=== PATIENT | male | born 1975 | race Caucasian/White ===

== ENCOUNTER → 2023-07-05 11:16 | Outpatient (CLI) | payer MEDICARE, MEDICAID, SELFPAY ==
[2023-07-05 13:22] LABS: Hemoglobin A1C% w Est Avg Glu 13.2 % (4.0-6.0)
== END ==
PROVIDERS: PCP Family Medicine; Referring Provider Family Medicine; Visit Provider Family Medicine
DX: E11.9 Type 2 diabetes mellitus without complications (principal)
CPT/HCPCS: 36415; 83036

== ENCOUNTER → 2023-08-13 10:34 | Outpatient (CLI) | payer MEDICARE, MEDICAID, SELFPAY ==
--- NOTE | 2023-08-15 17:27 | DIAB.MNT ---
Addendum entered by Fouzia Ruvalcaba 09/11/23 17:03: Tried calling for phone f/u. Contact number is mother, Khadra. 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 Asked her to have him call me with a day/time that works for us to schedule a phone call. Otherwise, October 16:1 scheduled. She did reports his BG have been <175mg/dl. Unclear if this is FBG or PP. Original Note: Initial Diabetes Medical Nutrition Therapy Assessment Name: Bruce Calderon Date: 08/13/23 Time: 1110a-12p Dx: Type II Diabetes Provider: Luna Schmidt presents today for initial DM education. PMH of schizophrenia DO and KATHI. Recently hospitalized s/p hernia surgery. Was diagnosed with DM with BG check presurgery of 400mg/dl per report and provided oral meds. Endorses takin glipizide 5mg and Metformin 500mg BID. HgA1c recent 13.2%. Given Hga1c and reported BG of 400mg/dl, anticipate needing additional medication coverage (full dose Metformin? Added DM agent?). Not currently checking BG but picked up supplies. 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 per report. Only grocery shops once per month. most of freezer is full of protein. Reports large protein portions in a sitting, ie 22oz. Limited veggie intake. Has switched from regular soda to diet x 2L per day. Hoping to move to [place]. Has been trying to keep meals to 15g CHO, very low, has been a challenge. wants mal planning ideas. Diet Recall: 12p: hard candy and/or 0.5c OJ with diet soda 4-5p: 6 eggs, 2 toast, breakfast meat OR 2c cooked oats with milk and sugar sub OR sweetened yogurt OR sf jello 12am: lasagna x 4c OR steak x 22oz OR hamburger OR tacos in low CHO wrap Beverages: 1L sparkling water, 2L diet soda Anthropometrics: Ht: 6'3.5 Wt: 252# last PCP visit 06/2023 Physical Activity: Not discussed today Self-Monitoring Blood Glucose: None but has supplies. Open to beginning checks. Diabetes Medications: Glipizide 5mg Metformin 500mg BID Pertinent Labs: 06/2023 13.2% HgA1c Past Medical History: (Last Updated 07/27/23 @ 20:26 by Antionette Matisa) Allergies (~1997) Anxiety (~2015) SSI Disability for anxiety Chronic cough (~2019) Hemorrhoid Hepatitis C (~2014) Hyperlipidemia (~2019) Hypertension (~2019) Mental health problem (~2020) [facility] confinement for 10 months Mumps (~1980) Schizophrenia, schizo-affective (~2020) Sleep apnea Substance abuse (~1999) Nutrition Rx: Carbohydrates: Meal:30-45g Snack:15-30g Nutrition Diagnosis: - Nutrition and food related knowledge deficit r/t new dx of DM and no previous MNT aeb pt report and hgA1c of 13.2% - Inadequate fiber intake r/t limited whole grains, veggies, fruit aeb diet recall Intervention: This participant was very receptive. Provided appropriate educational handouts. Discussed the following topics: Completed intake assessment. Discussed barriers to care. Importance of self-monitoring, how often, and when to check. Suggested checking at different times to evaluate meals Plate Method, impact of macronutrients on blood sugar, meal timing, carbohydrate counting, pairing macronutrients and spreading out carbohydrates for better blood glucose management Recommended servings for carbohydrates at meals and snacks Heart health and kidney health nutrition Brainstormed appropriate meal ideas/strategies on food preferences and food availability Encouraged frozen/canned low Na veg options Created SMART goals for patient self-care and success. Goals: Try to keep CHO to 30-45g per meal Check BG daily: FBG and/or 1-2h pc Increase veggie intake Follow-up: MARCIO WALKER follow-up in 1 week via messaging or phone and scheduled 3 month visit 1:1. Would recommend sooner f/u however this RD currently does not have virtual visit access. If Brayan moves to [place] or virtual visits are available, will schedule sooner f/u. Otherwise, messaging/phone check-ins. Fouzia Ruvalcaba RDN, DENISE Certified Diabetes Care and [employer] P: [phone] Thank you for this referral
== END ==
PROVIDERS: PCP Family Medicine; Referring Provider Family Medicine; Visit Provider Family Medicine
DX: E11.9 Type 2 diabetes mellitus without complications (principal)
CPT/HCPCS: 97802

== ENCOUNTER 2024-09-24 14:45 | Emergency (ER) | payer MEDICARE, MEDICAID, SELFPAY ==
[2024-09-24 15:08] VITALS: BP 168/92; PULSE 104; RESP 20; TEMP 36.6; O2SAT 99; BMI 26.7
--- NOTE | 2024-09-24 15:17 | DI.RAD.S_ITS ---
PROCEDURE: XR HIP W PEL IF DONE RT 2V INDICATIONS: hip pain TECHNIQUE: AP pelvis with lateral view(s) of the right hip(s). COMPARISON: None. FINDINGS: Bones: No fractures or dislocations. Mild bilateral hip joint osteoarthritic changes are seen. No evidence of avascular necrosis of femoral head. Pelvic ring appears intact. No suspicious bony lesions. Soft tissues: The visualized bowel gas pattern is normal. No suspicious soft tissue calcifications. IMPRESSION: No acute pelvic or hip fracture. Mild bilateral hip joint osteoarthritis. No evidence of avascular necrosis. Dictated by: Ashwin Billings M.D. on 09/24/2024 at 17:12 Approved by: Ashwin Billings M.D. on 09/24/2024 at 17:17
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
--- NOTE | 2024-09-24 17:09 | DI.RAD.S_ITS ---
PROCEDURE: XR FOOT LT MIN 3V INDICATIONS: Gaping, purulent wound, post-op ampution site x 6 months TECHNIQUE: 3 views of the foot were acquired. COMPARISON: None. FINDINGS: Bones: Prior forefoot amputation at the level of MTP joints. Erosive changes and cortical destruction involving 3rd and 4th metatarsal stumps are seen. No acute fracture or dislocation. No other area of bony erosive changes. Soft tissues: Open wound involving dorsal aspect of lateral forefoot stump. No abnormal soft tissue calcifications. IMPRESSION: Open wound involving left forefoot stump with suggestion of osteomyelitis involving 3rd and 4th metatarsal heads. Dictated by: Ashwin Billings M.D. on 09/24/2024 at 17:38 Approved by: Ashwin Billings M.D. on 09/24/2024 at 17:39
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
[2024-09-24 17:30] LABS: Add Manual Diff / Slide Review NO; Basophils Absolute Auto 100 /uL (0-100); Eosinophils Absolute Auto 100 /uL (0-450); Eosinophils Percent Auto 1.3 % (2-4); Hematocrit 37.3 % (41-53); Hemoglobin 12.1 g/dL (13.5-17.5); Lymphocytes Absolute Auto 1700 /uL (1100-4500); Lymphocytes Percent Auto 14.9 % (25-40); Mean Corpuscular HGB Conc 32.3 % (30-36); Mean Corpuscular Hemoglobin 27.6 PG (26-34); Mean Corpuscular Volume 85.4 fL (80-100); Monocytes Absolute Auto 700 /uL (0-900); Monocytes Percent Auto 5.9 % (3-14); Neutrophils Absolute Auto 9000 /uL (1500-7000); Neutrophils Percent Auto 76.9 % (50-75); Platelet Count 372 X10^3/uL (150-400); Red Blood Cell Count 4.37 X10^6/uL (4.5-5.9); Red Cell Distribution Width 15.6 % (11.6-14.8); White Blood Cell Count 11.6 X10^3/uL (4.5-11.0)
[2024-09-24 17:48] LABS: Alanine Aminotransferase 29 IU/L (<50); Albumin 3.9 g/dL (3.5-5.0); Alkaline Phosphatase 112 U/L (38-126); Aspartate Aminotransferase 29 IU/L (17-59); Bilirubin Total 0.4 mg/dL (0.2-1.3); Blood Urea Nitrogen 26 mg/dL (9-20); C-Reactive Protein Quant 0.6 mg/dL (<1.0); Calcium 8.7 mg/dL (8.4-10.2); Carbon Dioxide 27 mmol/L (22-32); Chloride 93 mmol/L (98-107); Estimated Glomerular Filt Rate > 60 mL/min (>60); Globulin 3.8 g/dL (1.7-4.1); Potassium 4.3 mmol/L (3.4-5.1); Sodium 129 mmol/L (137-145); Total Protein 7.7 g/dL (6.3-8.2)
[2024-09-24 17:52] LABS: HEMOLYSIS 16 (0-50)
[2024-09-24 17:53] LABS: Erythrocyte Sedimentation Rate 53 MM/HR (0-15)
[2024-09-24 17:54] LABS: Glucose 677 mg/dL (70-100)
--- NOTE | 2024-09-24 17:55 | CM.SWNOTE ---
ED [employer] Note [employer]ATE receives consult due to concern for access to housing and food. Patient is 48 y/o male who present to ED due to concern for hip & shoulder pain. Patient has hx of Diabetes type two, hyperglycemia, foot amputation of left foot 6 months ago presents with wounds on left foot. Patient has hx of hospitalizations and ED presentations per Jina regarding his Diabetes, wounds and co-morbidities. Patient has hx of Anxiety, Schizoaffective disorder and hx of polysubstance use. Patient's PCP is Dr. Carrasco, patient has Medicaid and Medicare insurance. Patient is on SSI disability. W[employer] MATE enters room to meet with patient, present with patient is patient's mother. Patient presents as A/Ox4 but somnolent with eyes closed. Patient is able to answer questions appropriately. Patient endorses he is staying in his truck with his dog. Patient states that he access food through the [employer] and [employer]. Patient states his mom lives in town, patient denies any other supports. Patient endorses it has been a while since he has been seen by PCP and would appreciate ED f/u with PCP. [employer] MATE provides patient with resources for housing, shelters and basic needs. Patient denies any further questions or concerns. It is reported that patient left ED AMA and informed RN that he needed to go to mandatory fci. [employer]ATE contacts PCP office regarding patient and requests ED f/u appt for patient. Plan: patient left AMA, resources provided to patient, PCP to f/u with patient. AKANKSHA Jameson
== END 2024-09-24 17:35 | disposition left against medical advice (07) ==
PROVIDERS: Emergency Provider Physician Assistant Medical; PCP Family Medicine
DX: E11.69 Type 2 diabetes mellitus with other specified complication (principal); M86.172 Other acute osteomyelitis, left ankle and foot; E11.65 Type 2 diabetes mellitus with hyperglycemia; M25.511 Pain in right shoulder; I10 Essential (primary) hypertension; E78.5 Hyperlipidemia, unspecified; F32.A Depression, unspecified; F17.200 Nicotine dependence, unspecified, uncomplicated; Z53.29 Procedure and treatment not carried out because of patient's decision for other reasons; Z59.02 Unsheltered homelessness
CPT/HCPCS: 73030; 73502; 73630; 80053; 82962; 83605; 85025; 85651; 86140; 87070; 87075; 87077; 87147; 87186; 87205; 99282; 99284

== ENCOUNTER 2024-09-27 01:50 | Emergency (ER) | payer MEDICARE, MEDICAID, SELFPAY ==
[2024-09-27] VITALS (15 sets, daily range): BP systolic 91–118; BP diastolic 52–70; PULSE 97–138; RESP 9–36; TEMP 37.7; O2SAT 93–99; BMI 29.8
--- NOTE | 2024-09-27 02:10 | DI.RAD.S_ITS ---
PROCEDURE: XR CHEST 1V INDICATIONS: sepsis TECHNIQUE: One view of the chest was acquired. COMPARISON: None. FINDINGS: Surgical changes and devices: None. Lungs and pleura: Lungs are clear. No pleural effusions or pneumothorax. Mediastinum: Mediastinal contours appear normal. Heart size is normal. Bones and chest wall: No suspicious bony lesions. Overlying soft tissues appear unremarkable. IMPRESSION: No acute cardiopulmonary pathology. Dictated by: Ashwin Billings M.D. on 09/27/2024 at 8:06 Approved by: Ashwin Billings M.D. on 09/27/2024 at 8:06
--- NOTE | 2024-09-27 02:10 | ED.GENADULT ---
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 vancomycin/Zosyn antibiotics and IV fluids, white blood cell count 76251, ESR 60 elevated, CRP 3.9 elevated, procalcitonin 4.79 elevated, lactic acid 1.6 not elevated. Glucose 379, history of diabetes, anion gap 10. Respiratory panel negative. He did allow CT pelvis that showed no no bony abnormality, chest x-ray no acute process. CT left foot with IV contrast was ordered last night, he apparently was combative, swung at farm equipment technician, refused the study. This morning patient sleeping, not cooperative with further imaging of his left foot. Unclear disposition plan. Assumed care. 0730, patient seems amenable after discussion to getting CT scan of the left foot. Already ordered, farm equipment technician informed. Patient again once he was over in the CT area became combative and then refused the study. On return to his ED room he stated to nursing that he wanted to go now, did not want any further treatment, was threatening to leave against medical advice, dressing himself for discharge. I discussed sepsis and severe infection with the patient, that he could have worsening infection, might lead to worsening outcome to left foot, loss of foot or limb, even . He yelled that he is aware he could , seemed to be aware of the consequences of his decision. Advised further antibiotics at least as an oral basis, he was initially not cooperative with naming a pharmacy, then indicated [facility], in the record pharmacy was listed as [facility] [place], antibiotics for Augmentin and Bactrim oral 10 day course sent to both of these pharmacies. He persisted in his desire to leave against medical advice despite warnings that this could lead to worsening condition and even . He left the emergency department against medical advice. Discharge Plan Departure Patient Disposition: Left Against Medical Advice Clinical Impression: Sepsis, Left foot infection, Left against medical advice Activity Restrictions/Additional Instructions: Mr. Calderon, You were initially treated by overnight emergency physician for possible sepsis severe infection, suspected infection from your left foot by clinical exam, IV antibiotics were initiated, attempt was made overnight to have CT scanning of that affected left foot but you were combative and refused scanning overnight. IV fluids were also given. This morning you were agreeable to have CT scanning but then once over the CT scan where again combative and refused imaging. You then decided that you wanted to go home and did not want any further treatment here or admission or further evaluation here at this hospital. You were informed that you have a suspected severe foot infection, you could , you seemed aware that you could from this process, but persisted in your desire to leave now against medical advice. Further or antibiotic course Augmentin and Bactrim sent to your pharmacy, you requested [facility] here, and also pharmacy of record was [facility] in [place]. Oral course of antibiotics Augmentin and Bactrim were sent to both of these pharmacies for 10 day courses. You are encouraged to fill the antibiotics and take the antibiotics. Follow up with your regular doctor advised tomorrow. Return to this emergency department for any concerns prior. You left the emergency department against medical advice. Prescriptions: New amoxicillin-pot clavulanate 875-125 mg tablet 1 tab PO BID Qty: 20 0RF sulfamethoxazole-trimethoprim [Bactrim DS] 800-160 mg tablet 1 tab PO BID Qty: 20 0RF amoxicillin-pot clavulanate 875-125 mg tablet 1 tab PO BID Qty: 20 0RF sulfamethoxazole-trimethoprim [Bactrim DS] 800-160 mg tablet 1 tab PO BID Qty: 20 0RF No Action hydroxyzine HCl 25 mg tablet 25 mg PO BID PRN (Reason: nausea and vomiting) Qty: 30 0RF polyethylene glycol 3350 [Miralax] 17 gram/dose powder 17 g PO DAILY Qty: 238 0RF Rx Instructions: Take 17g daily x4 days. If not having 1 soft painless BM daily, increase to twice daily. (DME) glucometer See Rx Instructions .Route .MEDSUPPLY Qty: 1 0RF Rx Instructions: To check glucose two times daily (DME) sharps container See Rx Instructions .Route .MEDSUPPLY Qty: 1 1RF Rx Instructions: As directed (DME) glucose test strips See Rx Instructions .Route .MEDSUPPLY Qty: 200 0RF Rx Instructions: Use to check glucose two times daily (DME) lancets See Rx Instructions .Route .MEDSUPPLY Qty: 200 0RF Rx Instructions: to test glucose two times daily Referrals: Alisia Carrasco MD [Primary Care Provider] - Stand Alone Forms: Patient Portal/API, Against Medical Advice
[2024-09-27 02:22] LABS: Add Manual Diff / Slide Review NO; Basophils Absolute Auto 100 /uL (0-100); Basophils Percent Auto 0.4 % (0-2); Eosinophils Absolute Auto 0 /uL (0-450); Eosinophils Percent Auto 0.1 % (2-4); Hematocrit 36.1 % (41-53); Hemoglobin 11.9 g/dL (13.5-17.5); Lymphocytes Absolute Auto 500 /uL (1100-4500); Lymphocytes Percent Auto 2.6 % (25-40); Mean Corpuscular Hemoglobin 27.3 PG (26-34); Mean Corpuscular Volume 82.8 fL (80-100); Monocytes Absolute Auto 1200 /uL (0-900); Monocytes Percent Auto 6.2 % (3-14); Neutrophils Absolute Auto 17500 /uL (1500-7000); Neutrophils Percent Auto 90.7 % (50-75); Platelet Count 300 X10^3/uL (150-400); Red Blood Cell Count 4.36 X10^6/uL (4.5-5.9); Red Cell Distribution Width 16.5 % (11.6-14.8); White Blood Cell Count 19.3 X10^3/uL (4.5-11.0)
[2024-09-27 02:27] LABS: Base Excess VBG 3.4 mmol/L (0-4); HCO3 VBG 26 mmol/L (24-28); Oxygen Saturation VBG 90 % (70-75); PCO2 VBG 32.7 mmHg (45-50); PO2 VBG 52 mmHg (35-45); Total CO2 VBG 25 mmol/L (24-29); pH VBG 7.51 (7.33-7.43)
[2024-09-27 02:36] LABS: HEMOLYSIS < 15 (0-50)
[2024-09-27 02:40] LABS: Lactate (Lactic Acid) 1.6 mmol/L (0.7-2.1)
--- NOTE | 2024-09-27 02:43 | EKG_ITS ---
[facility] [address], [place] [address] Test Date: 2024-09-27 Pat Name: Bruce Calderon Department: [facility] Room: Gender: Male Medical Physicist: : 1975 Requested By: Order Number: [id number] Reading MD: Kalia Cheatham MD Measurements Intervals [place] Rate: 129 P: 80 HI: 124 QRS: 90 QRSD: 84 T: 81 QT: 324 QTc: 474 Interpretive Statements Sinus tachycardia Rightward axis NO PRIOR TRACING Electronically Signed On 09-27-2024 7:35:15 PST by Kalia Cheatham MD
[2024-09-27 02:44] LABS: Alanine Aminotransferase 33 IU/L (<50); Albumin 3.8 g/dL (3.5-5.0); Alkaline Phosphatase 120 U/L (38-126); Aspartate Aminotransferase 30 IU/L (17-59); BUN Creatinine Ratio 30.6 (6-22); Bilirubin Total 0.8 mg/dL (0.2-1.3); Blood Urea Nitrogen 33 mg/dL (9-20); C-Reactive Protein Quant 3.9 mg/dL (<1.0); Calcium 8.7 mg/dL (8.4-10.2); Carbon Dioxide 26 mmol/L (22-32); Chloride 93 mmol/L (98-107); Creatine Kinase 99 U/L (55-170); Estimated Glomerular Filt Rate > 60 mL/min (>60); Glucose 379 mg/dL (70-100); Sodium 129 mmol/L (137-145); Total Protein 7.8 g/dL (6.3-8.2)
[2024-09-27] MEDS: PIPERACILLIN/TAZO 4.5 GM in SODIUM CHLORIDE 0.9% 100 ML IV (02:52)
[2024-09-27 02:53] LABS: Troponin I 0.017 ng/mL (0.01-0.034)
[2024-09-27 02:58] LABS: Procalcitonin 4.79 ng/mL (<0.5)
--- NOTE | 2024-09-27 02:58 | DI.CT.S_ITS ---
PROCEDURE: CT PEL WO CON INDICATIONS: on going right hip pain TECHNIQUE: Noncontrast 3 mm axial sections acquired through the bony pelvis, with coronal and sagittal reformatting. COMPARISON: None. FINDINGS: Image quality: Excellent. Bones: Pelvic ring is intact. No acute pelvic or hip fracture. No hip dislocation. No suspicious intraosseous lesions. No evidence of avascular necrosis of femoral heads. Degenerative endplate changes are noted at L4-5 and L5-S1 levels. No acute vertebral body compression fracture. Soft tissues: There is no pelvic free fluid or free air. No abnormal bowel wall thickening. Mild diffuse bladder wall thickening is noted with mildly enlarged prostate gland concerning for chronic outlet obstruction. Left inguinal hernia is seen containing fat only. There is no soft tissue mass or drainable fluid collection. No abnormal soft tissue calcifications. Mild generalized anasarca is seen. IMPRESSION: 1. No acute fracture or dislocation. No evidence of avascular necrosis. 2. Degenerative disc disease in visualized lower lumbar spine. 3. Mild generalized anasarca concerning for 3rd spacing. 4. Other chronic findings as above. No significant discrepancies from preliminary reading. Dictated by: Ashwin Billings M.D. on 09/27/2024 at 8:07 Approved by: Ashwin Billings M.D. on 09/27/2024 at 8:16
[2024-09-27 02:59] LABS: Erythrocyte Sedimentation Rate 60 MM/HR (0-15)
[2024-09-27 03:08] LABS: Ethanol (ETOH) < 10 mg/dL
[2024-09-27 03:18] LABS: Influenza A - CEPHEID Flu A NEGATIVE (NEGATIVE); Influenza B - CEPHEID Flu B NEGATIVE (NEGATIVE); Respiratory Syncytial Virus Negative (Negative)
[2024-09-27 03:20] LABS: Ketones (Beta-Hydroxybutyrate) 0.63 mmol/L (<0.27)
[2024-09-27 03:22] LABS: COVID-19 CEPHEID 4-PLEX PCR Negative (Negative)
[2024-09-27] MEDS: VANCOMYCIN 2,000 MG/400 ML PIGGYBACK 200 MG IV (03:39)
[2024-09-27] MEDS: SODIUM CHLORIDE 0.9% 2,993.7 ML 997.9 ML IV (03:51)
--- NOTE | 2024-09-27 03:52 | PC.NURSE ---
This NUISANCE WILDLIFE TRAPPER was asked by automation engineering technician to help transfer patient over to the CT table. Pt had difficulty following commands of laying flat, and assisting us in moving him to the CT table. Once pt was on CT table he, would not lay flat and wasn't allowing us to get the imaging ordered. automation engineering technician explained to pt the importance of getting the imaging and offered him a cushion for his legs to help with the pain. Cushion was provided for pt comfort. While getting imaging the pt was restless and unable to follow commands that were asked by the automation engineering technician. Pt then started to punch the CT machine and scream. This NUISANCE WILDLIFE TRAPPER entered the room with automation engineering technician and pt then was yelling you bitches don't fucking understand the pain I am in. Why don't you fucking help me instead of all of this shit. We explained to him why we were getting the imaging and how there was only a couple more to get. Pt then yelled I am going to fucking run. Dr. Clancy then came over to talk to the pt and explain again the importance. Pt then stated well this bitch doens't know what the fuck she is doing and doesn't understand what pain is. If it hurts, it fucking hurts got it. Pt then attempted to elbow this NUISANCE WILDLIFE TRAPPER and the automation engineering technician while trying to help him over to the stretcher and screamed don't fucking touch me cunt. This NUISANCE WILDLIFE TRAPPER then took pt back to ER via stretcher. IOANA Travis, IOANA Sparrow, IOANA Carrion, and Dr. Clancy are aware of this situation
--- NOTE | 2024-09-27 03:58 | PC.NURSE ---
Dr Clancy in to speak with pt about test results, attempts made to explain to pt the seriousness of the infection and the possible result of , pt yelled good just let me , but pt is cooperative with allowing his antibiotics and IVFs to be hung to infuse. pt given tissue to blow his nose after which he just throws them on the floor, when asked not to do that, pt stated why not this is a hospital
[2024-09-27] MEDS: KETOROLAC 30 MG/ML VIAL 15 MG IV (04:14)
[2024-09-27] MEDS: SODIUM CHLORIDE 0.9% 1,000 ML 150 ML IV (06:32)
--- NOTE | 2024-09-27 07:55 | PC.NURSE ---
Assumed care of pt at 0700
--- NOTE | 2024-09-27 08:42 | PC.NURSE ---
Pt refused to lay flat for CT and refused CT. Pt agitated and combative while down in DI. When pt refused DI, RN inquired why pt would not lie flat for CT. Pt began yelling at RN and said, because I am in pain, you stupid bitch. RN stated that she would ask for pain medications for pt and politely asked pt to refrain from using derogatory language while speaking with ED staff. Pt then began yelling and called rn a fat cunty cow and demanded that she get him pain medications. RN reiterated that it is inappropriate for pt refer to ED staff that are trying to help him with such vulgar and aggressive language and behavior. Pt remained agitated and stated that he wanted to get the fuck out of this fucking disgusting place as he threw trash and soiled kleenex on the ED room floor. RN began to explain that if he is to leave, that it is against medical advice and DR Tariq informed pt of risks associated with leaving. Pt yelled that he doesn't give a fuck and that he is getting the fuck out of here. Dr Tariq sent rx to [facility] in [place]. Pt given paperwork and asked to leave department. Pt remains aggressive and advancing on staff and refused to leave department. RN stated that he was no longer a pt in the ED and needed to exit the dept. RN stated that if pt did not leave dept, that security and police would be called to escort him out of building. Pt began yelling again and threatening staff with bodily harm. 911 & security called. [employer] arrived and to give pt ride home.
--- NOTE | 2024-09-27 15:22 | CM.SWNOTE ---
ED RAILROAD BRAKEMAN Follow Up Note: Reviewed chart, RAILROAD BRAKEMAN consulted for community continuous improvement director referral and possible collaboration with pt supports/interdisciplinary team. It is reported that pt presented to the ED for hip and foot pain, got IV abx for foot wound and left AMA before obtaining imaging. It is noted that antibiotic prescriptions sent to two pharmacies on file for patient to fill when available. RAILROAD BRAKEMAN placed referral via [employer] to Community Utilization Management Manager for housing assessment and medical coordination. RAILROAD BRAKEMAN sent a message to Transitional CM team to notify them of pt presentation, referral to Community Utilization Management Manager and hopeful for follow up with pt's PCP, Dr. Carrasco. AKANKSHA Carbajal
--- NOTE | 2024-09-28 18:24 | PC.NURSE ---
Lab called in regards to positive blood cultures. MD Clancy notified. Attempted to call phone number on file (mother's phone number). Left requesting for call back.
== END 2024-09-27 09:08 | disposition left against medical advice (07) ==
PROVIDERS: Emergency Medicine; Emergency Provider Emergency Medicine; PCP Family Medicine
DX: A41.9 Sepsis, unspecified organism (principal); L08.9 Local infection of the skin and subcutaneous tissue, unspecified; B96.1 Klebsiella pneumoniae [K. pneumoniae] as the cause of diseases classified elsewhere; M25.551 Pain in right hip; E11.65 Type 2 diabetes mellitus with hyperglycemia; F25.9 Schizoaffective disorder, unspecified; R00.0 Tachycardia, unspecified; Z59.02 Unsheltered homelessness; Z53.29 Procedure and treatment not carried out because of patient's decision for other reasons; Z79.4 Long term (current) use of insulin; Z89.412 Acquired absence of left great toe; Z89.411 Acquired absence of right great toe; Z89.422 Acquired absence of other left toe(s); Z89.421 Acquired absence of other right toe(s)
CPT/HCPCS: 0241U; 36415; 71045; 72192; 80053; 80320; 82009; 82550; 82805; 83605; 84145; 84484; 85025; 85651; 86140; 87040; 87077; 87147; 93005; 96361; 96365; 96366; 96367; 96375; 99284; 99285; J1885; J2543

== ENCOUNTER 2024-11-16 14:22 | Emergency (ER) | payer MEDICARE, MEDICAID, SELFPAY ==
[2024-11-16] VITALS (11 sets, daily range): BP systolic 152–199; BP diastolic 90–120; PULSE 88–96; RESP 18; TEMP 36.6; O2SAT 95–100; BMI 27.5
--- NOTE | 2024-11-16 17:08 | DI.CT.S_ITS ---
PROCEDURE: CT LE RT WO CON INDICATIONS: foot wound TECHNIQUE: Noncontrast 3-mm axial sections acquired from the distal tibial shaft to the talar dome, with coronal and sagittal reformats. For radiation dose reduction, the following was used: automated exposure control, adjustment of mA and/or kV according to patient size.. COMPARISON: None. FINDINGS: Image quality: Excellent. Please note that evaluation is limited in the absence of intravenous contrast. Bones: Diffuse osseous demineralization. No acute fracture. Extensive sclerosis, fragmentation, and osseous erosions involving the tarsal bones and metatarsal bases (/54-124). No talar dome osteochondral defect. Joints: The tibiotalar and subtalar joints are preserved without significant joint effusions. There is widening of the Lisfranc interval, likely secondary to chronic fracture-dislocation (). Muscles: There is diffuse fatty atrophy and replacement of the plantar foot musculature. Tendons: The visualized flexor and extensor tendon contours are within normal limits. The Achilles tendon contour is within normal limits. Vessels: Mild posterior tibial and dorsalis pedis vascular calcifications. No aneurysmal dilatation. Other soft tissues: Diffuse soft tissue edema and dermal thickening involving the ankle/foot with a soft tissue defect/ulcer at the plantar aspect of the cuboid (5/100). Other: Mild Achilles calcaneal plantar calcaneal enthesopathy. IMPRESSION: Overall, findings of neuropathic/diabetic arthropathy and myopathy along with diffuse subcutaneous edema, which may represent cellulitis, lymphedema, or venous congestion. If there is concern for osteomyelitis near the plantar ulcer site, please correlate with a probe to bone test. Dictated by: Diogo Dunn M.D. on 11/16/2024 at 18:42 Approved by: Diogo Dunn M.D. on 11/16/2024 at 18:49
--- NOTE | 2024-11-16 17:13 | ED.WOUNDLAC ---
HPI - Wound/Laceration <Kalia Will, DO - Last Filed: 11/16/24 18:45> General Chief Complaint: Wound/Laceration Stated Complaint: Needs IV fluid . Infection on both feet Time Seen by Provider: 11/16/24 16:58 Source: patient Mode of arrival: Ambulatory History of Present Illness HPI narrative: 49-year-old gentleman noncompliant diabetic [facility] sent over here for concerns that the patient may need IV antibiotics. Patient had all toes of his left foot amputated last summer. Patient does not check his sugar regularly and is not on any diabetic medicine is and is also a smoker. Other than what is stated 14 point review of system is negative Related Data Previous Rx's Medication Instructions Recorded hydroxyzine HCl 25 mg tablet 25 mg PO BID PRN nausea and 07/03/23 vomiting #30 tabs polyethylene glycol 3350 17 17 g PO DAILY #238 grams 07/03/23 gram/dose oral powder (Miralax) glucometer #1 ea 07/21/23 sharps container #1 ea 07/21/23 glucose test strips #200 ea 09/11/23 lancets #200 ea 09/11/23 amoxicillin 875 mg-potassium 1 tab PO BID #20 tabs 09/27/24 clavulanate 125 mg tablet amoxicillin 875 mg-potassium 1 tab PO BID #20 tabs 09/27/24 clavulanate 125 mg tablet sulfamethoxazole 800 1 tab PO BID #20 tabs 09/27/24 mg-trimethoprim 160 mg tablet (Bactrim DS) sulfamethoxazole 800 1 tab PO BID #20 tabs 09/27/24 mg-trimethoprim 160 mg tablet (Bactrim DS) sulfamethoxazole 800 2 tab PO BID 14 days #56 tabs 11/16/24 mg-trimethoprim 160 mg tablet (Bactrim DS) Allergies Allergy/AdvReac Type Severity Reaction Status Date / Time propofol Allergy Unconscious Verified 11/16/24 14:30 tree and shrub pollen AdvReac Mild Verified 07/09/23 13:27 dander AdvReac Mild Uncoded 07/09/23 13:27 Review of Systems <Kalia Will, DO - Last Filed: 11/16/24 18:45> Review of Systems ROS Unobtainable: All systems reviewed & are unremarkable except as noted in HPI and below Patient History <Kalia Wlil, DO - Last Filed: 11/16/24 18:45> Medical History Sleep apnea Chronic cough (~2019) Allergies (~1997) Mental health problem (~2020) Substance abuse (~1999) Schizophrenia, schizo-affective (~2020) Anxiety (~2015) Mumps (~1980) Hepatitis C (~2014) Hemorrhoid Hyperlipidemia (~2019) Hypertension (~2019) Surgical History Anesthesia History of ankle surgery H/O right inguinal hernia repair (~06/2023) Social History Smoking Status: Current every day smoker Smoking Status: Current every day smoker tobacco type: pipe Alcohol type: beer Exam <Kaila Will DO - Last Filed: 11/16/24 18:45> Narrative Exam Narrative: GENERAL: [49] year old patient appears stated age. Well-developed patient, in mild distress. HEAD: Atraumatic. Normocephalic. EYES: Pupils equal round and reactive. Extraocular motions intact. No scleral icterus. No injection or drainage. NECK: Trachea midline. Non tender CARDIOVASCULAR: Regular rate and rhythm without murmurs, gallops, or rubs. RESPIRATORY: Clear to auscultation. Breath sounds equal bilaterally. No wheezes, rales, or rhonchi. GASTROINTESTINAL: Abdomen soft, non-tender, nondistended. EXTREMITIES: No edema or j BACK: Nontender without deformity or crepitance. No flank tenderness. NEURO: AOx3. SKIN: L foot all toes amputated, L dorsum foot soft tissue exposure with mild redness of exposed tissue with min purulent drainage. R foot plantar aspect mid foot deep ulceration 2x2cm. Initial Vital Signs Initial Vital Signs: Vital Signs Temperature 97.8 F 11/16/24 14:30 Pulse Rate 96 H 11/16/24 14:30 Respiratory Rate 18 11/16/24 14:30 Blood Pressure 178/95 H 11/16/24 14:30 Pulse Oximetry 98 11/16/24 14:30 Oxygen Delivery Method Room Air 11/16/24 14:30 <Alfonso Ayoub, DO - Last Filed: 11/16/24 20:53> Initial Vital Signs Initial Vital Signs: Vital Signs Temperature 97.8 F 11/16/24 14:30 Pulse Rate 96 H 11/16/24 14:30 Respiratory Rate 18 11/16/24 14:30 Blood Pressure 178/95 H 11/16/24 14:30 Pulse Oximetry 98 11/16/24 14:30 Oxygen Delivery Method Room Air 11/16/24 14:30 <Geovanna Clancy, DO - Last Filed: 11/18/24 19:22> Initial Vital Signs Initial Vital Signs: Vital Signs Temperature 97.8 F 11/16/24 14:30 Pulse Rate 96 H 11/16/24 14:30 Respiratory Rate 18 11/16/24 14:30 Blood Pressure 178/95 H 11/16/24 14:30 Pulse Oximetry 98 11/16/24 14:30 Oxygen Delivery Method Room Air 11/16/24 14:30 Course <Kalia Will, DO - Last Filed: 11/16/24 18:45> Orders Ordered: Discontinued Medications Vancomycin HCl 1,000 mg/ (Sodium Chloride) 250 mls @ 250 mls/hr IV NOW ONE Stop: 11/16/24 17:08 Last Infusion: 11/16/24 18:58 Dose: Infused Documented By: Admin: 11/16/24 17:40 Dose: 250 mls/hr Documented By: MPO Piperacillin Sod/Tazobactam (Sod 4.5 gm/ Sodium Chloride) 100 mls @ 200 mls/hr IV NOW ONE Stop: 11/16/24 17:22 Last Infusion: 11/16/24 19:58 Dose: Infused Documented By: Admin: 11/16/24 18:52 Dose: 200 mls/hr Documented By: MPO Sodium Chloride (Normal Saline 0.9%) 2,000 mls @ 1,000 mls/hr IV BOLUS ONE Stop: 11/16/24 19:43 Last Infusion: 11/16/24 19:59 Dose: Infused Documented By: Admin: 11/16/24 18:00 Dose: 1,000 mls/hr Documented By: MPO Sodium Chloride (Normal Saline 0.9%) 1,000 mls @ 1,000 mls/hr IV BOLUS ONE Stop: 11/16/24 19:17 Last Admin: 11/16/24 20:15 Dose: Not Given Documented By: MARK Insulin Human Regular (Insulin Regular 100 Unit/Ml 3 Ml Vial) 10 unit IV NOW ONE Stop: 11/16/24 17:45 Last Admin: 11/16/24 17:59 Dose: 10 unit Documented By: SALOMÓN Co-signed By: EL Vital Signs Vital signs: Vital Signs - 8 hr 11/16/24 14:30 11/16/24 17:31 11/16/24 17:31 Temperature 97.8 F Pulse Rate 96 H 88 Respiratory Rate 18 Blood Pressure 178/95 H 152/90 H Pulse Oximetry 98 97 Oxygen Delivery Method Room Air 11/16/24 18:00 11/16/24 18:16 11/16/24 18:30 Temperature Pulse Rate 90 93 H Respiratory Rate Blood Pressure 199/120 H Pulse Oximetry 96 96 Oxygen Delivery Method 11/16/24 18:33 11/16/24 18:34 11/16/24 18:34 Temperature Pulse Rate 91 H 92 H Respiratory Rate Blood Pressure 197/97 H Pulse Oximetry 100 100 Oxygen Delivery Method 11/16/24 19:00 11/16/24 19:00 11/16/24 19:30 Temperature Pulse Rate 93 H Respiratory Rate Blood Pressure 175/99 H 168/103 H Pulse Oximetry 99 Oxygen Delivery Method 11/16/24 19:30 Temperature Pulse Rate 92 H Respiratory Rate 18 Blood Pressure Pulse Oximetry 99 Oxygen Delivery Method <Alfonso Ayoub, - Last Filed: 11/16/24 20:53> Orders Ordered: Discontinued Medications Vancomycin HCl 1,000 mg/ (Sodium Chloride) 250 mls @ 250 mls/hr IV NOW ONE Stop: 11/16/24 17:08 Last Infusion: 11/16/24 18:58 Dose: Infused Documented By: Admin: 11/16/24 17:40 Dose: 250 mls/hr Documented By: SALOMÓN Piperacillin Sod/Tazobactam (Sod 4.5 gm/ Sodium Chloride) 100 mls @ 200 mls/hr IV NOW ONE Stop: 11/16/24 17:22 Last Infusion: 11/16/24 19:58 Dose: Infused Documented By: Admin: 11/16/24 18:52 Dose: 200 mls/hr Documented By: SALOMÓN Sodium Chloride (Normal Saline 0.9%) 2,000 mls @ 1,000 mls/hr IV BOLUS ONE Stop: 11/16/24 19:43 Last Infusion: 11/16/24 19:59 Dose: Infused Documented By: Admin: 11/16/24 18:00 Dose: 1,000 mls/hr Documented By: SALOMÓN Sodium Chloride (Normal Saline 0.9%) 1,000 mls @ 1,000 mls/hr IV BOLUS ONE Stop: 11/16/24 19:17 Last Admin: 11/16/24 20:15 Dose: Not Given Documented By: MARK Insulin Human Regular (Insulin Regular 100 Unit/Ml 3 Ml Vial) 10 unit IV NOW ONE Stop: 11/16/24 17:45 Last Admin: 11/16/24 17:59 Dose: 10 unit Documented By: SALOMÓN Co-signed By: EL Vital Signs Vital signs: Vital Signs - 8 hr 11/16/24 14:30 11/16/24 17:31 11/16/24 17:31 Temperature 97.8 F Pulse Rate 96 H 88 Respiratory Rate 18 Blood Pressure 178/95 H 152/90 H Pulse Oximetry 98 97 Oxygen Delivery Method Room Air 11/16/24 18:00 11/16/24 18:16 11/16/24 18:30 Temperature Pulse Rate 90 93 H Respiratory Rate Blood Pressure 199/120 H Pulse Oximetry 96 96 Oxygen Delivery Method 11/16/24 18:33 11/16/24 18:34 11/16/24 18:34 Temperature Pulse Rate 91 H 92 H Respiratory Rate Blood Pressure 197/97 H Pulse Oximetry 100 100 Oxygen Delivery Method 11/16/24 19:00 11/16/24 19:00 11/16/24 19:30 Temperature Pulse Rate 93 H Respiratory Rate Blood Pressure 175/99 H 168/103 H Pulse Oximetry 99 Oxygen Delivery Method 11/16/24 19:30 Temperature Pulse Rate 92 H Respiratory Rate 18 Blood Pressure Pulse Oximetry 99 Oxygen Delivery Method <Geovanna Clancy DO - Last Filed: 11/18/24 19:22> Orders Ordered: Discontinued Medications Vancomycin HCl 1,000 mg/ (Sodium Chloride) 250 mls @ 250 mls/hr IV NOW ONE Stop: 11/16/24 17:08 Last Infusion: 11/16/24 18:58 Dose: Infused Documented By: Admin: 11/16/24 17:40 Dose: 250 mls/hr Documented By: SALOMÓN Piperacillin Sod/Tazobactam (Sod 4.5 gm/ Sodium Chloride) 100 mls @ 200 mls/hr IV NOW ONE Stop: 11/16/24 17:22 Last Infusion: 11/16/24 19:58 Dose: Infused Documented By: Admin: 11/16/24 18:52 Dose: 200 mls/hr Documented By: SALOMÓN Sodium Chloride (Normal Saline 0.9%) 2,000 mls @ 1,000 mls/hr IV BOLUS ONE Stop: 11/16/24 19:43 Last Infusion: 11/16/24 19:59 Dose: Infused Documented By: Admin: 11/16/24 18:00 Dose: 1,000 mls/hr Documented By: SALOMÓN Sodium Chloride (Normal Saline 0.9%) 1,000 mls @ 1,000 mls/hr IV BOLUS ONE Stop: 11/16/24 19:17 Last Admin: 11/16/24 20:15 Dose: Not Given Documented By: MARK Insulin Human Regular (Insulin Regular 100 Unit/Ml 3 Ml Vial) 10 unit IV NOW ONE Stop: 11/16/24 17:45 Last Admin: 11/16/24 17:59 Dose: 10 unit Documented By: SALOMÓN Co-signed By: EL Vital Signs Vital signs: Vital Signs - 8 hr 11/16/24 14:30 11/16/24 17:31 11/16/24 17:31 Temperature 97.8 F Pulse Rate 96 H 88 Respiratory Rate 18 Blood Pressure 178/95 H 152/90 H Pulse Oximetry 98 97 Oxygen Delivery Method Room Air 11/16/24 18:00 11/16/24 18:16 11/16/24 18:30 Temperature Pulse Rate 90 93 H Respiratory Rate Blood Pressure 199/120 H Pulse Oximetry 96 96 Oxygen Delivery Method 11/16/24 18:33 11/16/24 18:34 11/16/24 18:34 Temperature Pulse Rate 91 H 92 H Respiratory Rate Blood Pressure 197/97 H Pulse Oximetry 100 100 Oxygen Delivery Method 11/16/24 19:00 11/16/24 19:00 11/16/24 19:30 Temperature Pulse Rate 93 H Respiratory Rate Blood Pressure 175/99 H 168/103 H Pulse Oximetry 99 Oxygen Delivery Method 11/16/24 19:30 Temperature Pulse Rate 92 H Respiratory Rate 18 Blood Pressure Pulse Oximetry 99 Oxygen Delivery Method MDM - Wound/Laceration <Kalia Will, DO - Last Filed: 11/16/24 18:45> Medical Records Medical records narrative: Pt s/o to at shift change pending final disposition Lab Data 11/16/24 17:17 11/16/24 17:17 Labs: Lab Results 11/16/24 11/16/24 Range/Units 17:17 19:51 WBC 10.2 (4.5-11.0) X10^3/uL RBC 3.86 L (4.5-5.9) X10^6/uL Hgb 10.9 L (13.5-17.5) g/dL Hct 33.1 L (41-53) % MCV 85.9 (80-100) fL MCH 28.2 (26-34) PG MCHC 32.8 (30-36) % RDW 15.7 H (11.6-14.8) % Plt Count 282 (150-400) X10^3/uL Neut % (Auto) 69.1 (50-75) % Lymph % (Auto) 21.9 L (25-40) % [place] % (Auto) 6.3 (3-14) % Eos % (Auto) 1.6 L (2-4) % Baso % (Auto) 1.1 (0-2) % Neut # (Auto) 7100 H (7509-4561) /uL Lymph # (Auto) 2200 (7469-2720) /uL [place] # (Auto) 600 (0-900) /uL Eos # (Auto) 200 (0-450) /uL Baso # (Auto) 100 (0-100) /uL VBG pH 7.44 H (7.33-7.43) VBG pCO2 41.1 L (45-50) mmHg VBG pO2 90 H (35-45) mmHg VBG HCO3 28 (24-28) mmol/L VBG Total CO2 27 (24-29) mmol/L VBG O2 Saturation 97 H (70-75) % VBG Base Excess 3.7 (0-4) mmol/L FiO2 % 21.0 % % Sodium 125 L (137-145) mmol/L Potassium 4.5 (3.4-5.1) mmol/L Chloride 90 L (98-107) mmol/L Carbon Dioxide 25 (22-32) mmol/L BUN 28 H (9-20) mg/dL Creatinine 1.10 (0.66-1.25) mg/dL Estimated GFR > 60 (>60) mL/min BUN/Creatinine Ratio 25.5 H (6-22) Glucose 669 H* (70-100) mg/dL Lactate 1.6 (0.7-2.1) mmol/L Calcium 8.5 (8.4-10.2) mg/dL Total Bilirubin 0.4 (0.2-1.3) mg/dL AST 38 (17-59) IU/L ALT 50 H (<50) IU/L Alkaline Phosphatase 119 (38-126) U/L Total Protein 6.8 (6.3-8.2) g/dL Albumin 3.4 L (3.5-5.0) g/dL Globulin 3.4 (1.7-4.1) g/dL Albumin/Globulin Ratio 1.0 (1.0-2.8) Ketones 0.07 (<0.27) mmol/L <Alfonso Aoyub, DO - Last Filed: 11/16/24 20:53> Medical Records Medical records narrative: Pt s/o to at shift change pending final disposition Lab Data Labs: Lab Results 11/16/24 11/16/24 Range/Units 17:17 19:51 WBC 10.2 (4.5-11.0) X10^3/uL RBC 3.86 L (4.5-5.9) X10^6/uL Hgb 10.9 L (13.5-17.5) g/dL Hct 33.1 L (41-53) % MCV 85.9 (80-100) fL MCH 28.2 (26-34) PG MCHC 32.8 (30-36) % RDW 15.7 H (11.6-14.8) % Plt Count 282 (150-400) X10^3/uL Neut % (Auto) 69.1 (50-75) % Lymph % (Auto) 21.9 L (25-40) % [place] % (Auto) 6.3 (3-14) % Eos % (Auto) 1.6 L (2-4) % Baso % (Auto) 1.1 (0-2) % Neut # (Auto) 7100 H (7102-9055) /uL Lymph # (Auto) 2200 (8396-6061) /uL [place] # (Auto) 600 (0-900) /uL Eos # (Auto) 200 (0-450) /uL Baso # (Auto) 100 (0-100) /uL VBG pH 7.44 H (7.33-7.43) VBG pCO2 41.1 L (45-50) mmHg VBG pO2 90 H (35-45) mmHg VBG HCO3 28 (24-28) mmol/L VBG Total CO2 27 (24-29) mmol/L VBG O2 Saturation 97 H (70-75) % VBG Base Excess 3.7 (0-4) mmol/L FiO2 % 21.0 % % Sodium 125 L (137-145) mmol/L Potassium 4.5 (3.4-5.1) mmol/L Chloride 90 L (98-107) mmol/L Carbon Dioxide 25 (22-32) mmol/L BUN 28 H (9-20) mg/dL Creatinine 1.10 (0.66-1.25) mg/dL Estimated GFR > 60 (>60) mL/min BUN/Creatinine Ratio 25.5 H (6-22) Glucose 669 H* (70-100) mg/dL Lactate 1.6 (0.7-2.1) mmol/L Calcium 8.5 (8.4-10.2) mg/dL Total Bilirubin 0.4 (0.2-1.3) mg/dL AST 38 (17-59) IU/L ALT 50 H (<50) IU/L Alkaline Phosphatase 119 (38-126) U/L Total Protein 6.8 (6.3-8.2) g/dL Albumin 3.4 L (3.5-5.0) g/dL Globulin 3.4 (1.7-4.1) g/dL Albumin/Globulin Ratio 1.0 (1.0-2.8) Ketones 0.07 (<0.27) mmol/L MDM Narrative Medical decision making narrative: 1800: Dr. Ayoub received sign-out by Dr. Will. ?Patient is a 49-year-old male who has history diabetes and bilateral toe amputations with noncompliance/uncontrolled diabetes sent in by walk-in clinic for worsening ulceration/infections to his feet/toes.? Patient has already received vanc Zosyn, patient's blood glucose noted to be in the 600s, did receive insulin fluids, final disposition pending repeat glucose, CT scan of bilateral feet. 2044: Patient was re-evaluated by me, patient without any new concerns, patient's blood glucose went down to for 50s after 2 L normal saline and 10 units insulin, patient lab work not consistent with DKA. I counseled patient needing to control his blood glucose better. I also informed him of possible need for admission for persistent/continued IV antibiotics for his feet, however he states he does not want this, he states that he wants to just try oral antibiotics and follow up outpatient, I informed him that this could lead to him getting worsening infection and lead to possible amputation of the feet, he states he does not care he states that they will ?never cut my feet off. Patient will be sent home with oral antibiotics and instructed to follow up with Podiatry and/or Orthopedic surgery in outpatient setting, patient is afebrile no leukocytosis not meeting any other sirs or sepsis criteria patient was given strict return precautions he verbalized understanding of this and agrees to being discharged home with outpatient follow up <Geovanna Clancy DO - Last Filed: 11/18/24 19:22> Lab Data Labs: Lab Results 11/16/24 11/16/24 Range/Units 17:17 19:51 WBC 10.2 (4.5-11.0) X10^3/uL RBC 3.86 L (4.5-5.9) X10^6/uL Hgb 10.9 L (13.5-17.5) g/dL Hct 33.1 L (41-53) % MCV 85.9 (80-100) fL MCH 28.2 (26-34) PG MCHC 32.8 (30-36) % RDW 15.7 H (11.6-14.8) % Plt Count 282 (150-400) X10^3/uL Neut % (Auto) 69.1 (50-75) % Lymph % (Auto) 21.9 L (25-40) % [place] % (Auto) 6.3 (3-14) % Eos % (Auto) 1.6 L (2-4) % Baso % (Auto) 1.1 (0-2) % Neut # (Auto) 7100 H (7697-0127) /uL Lymph # (Auto) 2200 (6961-7014) /uL [place] # (Auto) 600 (0-900) /uL Eos # (Auto) 200 (0-450) /uL Baso # (Auto) 100 (0-100) /uL VBG pH 7.44 H (7.33-7.43) VBG pCO2 41.1 L (45-50) mmHg VBG pO2 90 H (35-45) mmHg VBG HCO3 28 (24-28) mmol/L VBG Total CO2 27 (24-29) mmol/L VBG O2 Saturation 97 H (70-75) % VBG Base Excess 3.7 (0-4) mmol/L FiO2 % 21.0 % % Sodium 125 L (137-145) mmol/L Potassium 4.5 (3.4-5.1) mmol/L Chloride 90 L (98-107) mmol/L Carbon Dioxide 25 (22-32) mmol/L BUN 28 H (9-20) mg/dL Creatinine 1.10 (0.66-1.25) mg/dL Estimated GFR > 60 (>60) mL/min BUN/Creatinine Ratio 25.5 H (6-22) Glucose 669 H* (70-100) mg/dL Lactate 1.6 (0.7-2.1) mmol/L Calcium 8.5 (8.4-10.2) mg/dL Total Bilirubin 0.4 (0.2-1.3) mg/dL AST 38 (17-59) IU/L ALT 50 H (<50) IU/L Alkaline Phosphatase 119 (38-126) U/L Total Protein 6.8 (6.3-8.2) g/dL Albumin 3.4 L (3.5-5.0) g/dL Globulin 3.4 (1.7-4.1) g/dL Albumin/Globulin Ratio 1.0 (1.0-2.8) Ketones 0.07 (<0.27) mmol/L MDM Narrative Medical decision making narrative: 1800: Dr. Ayoub received sign-out by Dr. Will. ?Patient is a 49-year-old male who has history diabetes and bilateral toe amputations with noncompliance/uncontrolled diabetes sent in by walk-in clinic for worsening ulceration/infections to his feet/toes.? Patient has already received vanc Zosyn, patient's blood glucose noted to be in the 600s, did receive insulin fluids, final disposition pending repeat glucose, CT scan of bilateral feet. 2044: Patient was re-evaluated by me, patient without any new concerns, patient's blood glucose went down to for 50s after 2 L normal saline and 10 units insulin, patient lab work not consistent with DKA. I counseled patient needing to control his blood glucose better. I also informed him of possible need for admission for persistent/continued IV antibiotics for his feet, however he states he does not want this, he states that he wants to just try oral antibiotics and follow up outpatient, I informed him that this could lead to him getting worsening infection and lead to possible amputation of the feet, he states he does not care he states that they will ?never cut my feet off. Patient will be sent home with oral antibiotics and instructed to follow up with Podiatry and/or Orthopedic surgery in outpatient setting, patient is afebrile no leukocytosis not meeting any other sirs or sepsis criteria patient was given strict return precautions he verbalized understanding of this and agrees to being discharged home with outpatient follow up Dr. Clancy culture follow-up positive for Klebsiella pneumoniae in group a strep. Resistant to Bactrim sensitive to cefdinir for both sent to patient's pharmacy of choice Discharge Plan Departure Patient Disposition: Home Clinical Impression: Osteomyelitis, Hyperglycemia, Cellulitis Instructions: DI for Wound Infection Activity Restrictions/Additional Instructions: Please follow up with Orthopedic surgery and/or podiatry as well as your primary care doctor Please read the discharge instructions sheet carefully and bring all papers to all doctor follow-up visits, as it may contain information that your doctor may want to see. Disease processes change and evolve, if your symptoms worsen or if you develop any new symptoms that are concerning to you please return for evaluation. Your evaluation today does not show any evidence of any life-threatening/serious illnesses requiring admission to the hospital or surgery. Please follow-up with your doctor for re-evaluation in approximately 1 day. Seek immediate medical attention for any worrisome symptoms. *If you do not have a primary care provider please contact the [facility] Resource line at [phone]. They will ask some questions about your medical history and help get you set up with a doctor in the community. Prescriptions: New sulfamethoxazole-trimethoprim [Bactrim DS] 800-160 mg tablet 2 tab PO BID 14 Days Qty: 56 0RF No Action hydroxyzine HCl 25 mg tablet 25 mg PO BID PRN (Reason: nausea and vomiting) Qty: 30 0RF polyethylene glycol 3350 [Miralax] 17 gram/dose powder 17 g PO DAILY Qty: 238 0RF Rx Instructions: Take 17g daily x4 days. If not having 1 soft painless BM daily, increase to twice daily. (DME) glucometer See Rx Instructions .Route .MEDSUPPLY Qty: 1 0RF Rx Instructions: To check glucose two times daily (DME) sharps container See Rx Instructions .Route .MEDSUPPLY Qty: 1 1RF Rx Instructions: As directed (DME) glucose test strips See Rx Instructions .Route .MEDSUPPLY Qty: 200 0RF Rx Instructions: Use to check glucose two times daily (DME) lancets See Rx Instructions .Route .MEDSUPPLY Qty: 200 0RF Rx Instructions: to test glucose two times daily amoxicillin-pot clavulanate 875-125 mg tablet 1 tab PO BID Qty: 20 0RF sulfamethoxazole-trimethoprim [Bactrim DS] 800-160 mg tablet 1 tab PO BID Qty: 20 0RF amoxicillin-pot clavulanate 875-125 mg tablet 1 tab PO BID Qty: 20 0RF sulfamethoxazole-trimethoprim [Bactrim DS] 800-160 mg tablet 1 tab PO BID Qty: 20 0RF Referrals: Alisia Carrasco MD [Primary Care Provider] - Odin Claire MD [Physician] - As soon as possible Stand Alone Forms: Patient Portal/API/Survey
--- NOTE | 2024-11-16 17:21 | DI.CT.S_ITS ---
PROCEDURE: CT LE LT W CON INDICATIONS: foot wound TECHNIQUE: Noncontrast 3-mm axial sections acquired from the distal tibial shaft to the talar dome, with coronal and sagittal reformats. For radiation dose reduction, the following was used: automated exposure control, adjustment of mA and/or kV according to patient size.. COMPARISON: [facility], CR, XR FOOT LT MIN 3V, 09/24/2024, 17:11. [facility], CT, CT LE RT WO CON, 11/16/2024, 17:25. FINDINGS: Image quality: Excellent. Bones: Diffuse osseous demineralization. Status post partial amputation of all rays to the level of the metatarsal heads. Amorphous material within the intramedullary cavity of the 3rd metatarsal shaft with adjacent periosteal reaction (). No talar dome osteochondral defect. Joints: The tibiotalar and subtalar joints are preserved without significant joint effusions. The midfoot joints are preserved. The Lisfranc interval is preserved. Muscles: Mild fatty atrophy and replacement of the plantar foot musculature. Tendons: The visualized flexor and extensor tendon contours are preserved. The Achilles tendon contour is preserved. Vessels: Mild dorsalis pedis and posterior tibial vascular calcifications. No aneurysmal dilatation. Other soft tissues: Soft tissue edema along the amputated portions of the forefoot as well as the lower calf. IMPRESSION: 1. Status post partial amputation of the forefoot with osseous findings at the 3rd metatarsal shaft, which can be seen with osteomyelitis. 2. Neuropathic/diabetic myopathy. Dictated by: Diogo Dunn M.D. on 11/16/2024 at 18:49 Approved by: Diogo Dunn M.D. on 11/16/2024 at 18:54
[2024-11-16 17:26] LABS: Add Manual Diff / Slide Review NO; Basophils Absolute Auto 100 /uL (0-100); Basophils Percent Auto 1.1 % (0-2); Eosinophils Absolute Auto 200 /uL (0-450); Eosinophils Percent Auto 1.6 % (2-4); Hematocrit 33.1 % (41-53); Hemoglobin 10.9 g/dL (13.5-17.5); Lymphocytes Absolute Auto 2200 /uL (1100-4500); Lymphocytes Percent Auto 21.9 % (25-40); Mean Corpuscular HGB Conc 32.8 % (30-36); Mean Corpuscular Hemoglobin 28.2 PG (26-34); Mean Corpuscular Volume 85.9 fL (80-100); Monocytes Absolute Auto 600 /uL (0-900); Monocytes Percent Auto 6.3 % (3-14); Neutrophils Absolute Auto 7100 /uL (1500-7000); Neutrophils Percent Auto 69.1 % (50-75); Platelet Count 282 X10^3/uL (150-400); Red Blood Cell Count 3.86 X10^6/uL (4.5-5.9); Red Cell Distribution Width 15.7 % (11.6-14.8); White Blood Cell Count 10.2 X10^3/uL (4.5-11.0)
[2024-11-16 17:35] LABS: Lactate (Lactic Acid) 1.6 mmol/L (0.7-2.1)
[2024-11-16 17:36] LABS: Alanine Aminotransferase 50 IU/L (<50); Albumin 3.4 g/dL (3.5-5.0); Alkaline Phosphatase 119 U/L (38-126); Aspartate Aminotransferase 38 IU/L (17-59); BUN Creatinine Ratio 25.5 (6-22); Bilirubin Total 0.4 mg/dL (0.2-1.3); Blood Urea Nitrogen 28 mg/dL (9-20); Calcium 8.5 mg/dL (8.4-10.2); Carbon Dioxide 25 mmol/L (22-32); Chloride 90 mmol/L (98-107); Estimated Glomerular Filt Rate > 60 mL/min (>60); Globulin 3.4 g/dL (1.7-4.1); HEMOLYSIS < 15 (0-50); Potassium 4.5 mmol/L (3.4-5.1); Sodium 125 mmol/L (137-145); Total Protein 6.8 g/dL (6.3-8.2)
[2024-11-16] MEDS: VANCOMYCIN 1,000 MG in SODIUM CHLORIDE 0.9% 250 ML 250 MG IV (17:40)
[2024-11-16 17:44] LABS: Glucose 669 mg/dL (70-100)
[2024-11-16] MEDS: INSULIN REGULAR 100 UNIT/ML 3 ML VIAL 10 UNIT IV (17:59)
[2024-11-16] MEDS: SODIUM CHLORIDE 0.9% 2,000 ML 1000 ML IV (18:00)
[2024-11-16 18:10] LABS: Ketones (Beta-Hydroxybutyrate) 0.07 mmol/L (<0.27)
[2024-11-16] MEDS: PIPERACILLIN/TAZO 4.5 GM in SODIUM CHLORIDE 0.9% 100 ML IV (18:52)
[2024-11-16 19:54] LABS: Base Excess VBG 3.7 mmol/L (0-4); HCO3 VBG 28 mmol/L (24-28); Oxygen Saturation VBG 97 % (70-75); PCO2 VBG 41.1 mmHg (45-50); PO2 VBG 90 mmHg (35-45); Total CO2 VBG 27 mmol/L (24-29); pH VBG 7.44 (7.33-7.43)
== END 2024-11-16 20:55 | disposition home or self-care (01) ==
PROVIDERS: Family Medicine; Emergency Provider Student in an Organized Health Care Education/Training Program; PCP Family Medicine
DX: E11.65 Type 2 diabetes mellitus with hyperglycemia (principal); M86.8X7 Other osteomyelitis, ankle and foot; L03.116 Cellulitis of left lower limb; L03.115 Cellulitis of right lower limb; B96.1 Klebsiella pneumoniae [K. pneumoniae] as the cause of diseases classified elsewhere; B95.0 Streptococcus, group A, as the cause of diseases classified elsewhere; Z91.148 Patient's other noncompliance with medication regimen for other reason
CPT/HCPCS: 36415; 73700; 80053; 82009; 82805; 82962; 83605; 85025; 87040; 87070; 87075; 87077; 87147; 87186; 87205; 96365; 96367; 96375; 99284; J2543

== ENCOUNTER → 2024-12-30 11:45 | Outpatient (CLI) | payer MEDICARE, MEDICAID, SELFPAY | PROVIDERS: PCP Family Medicine; Visit Provider Family Medicine | DX: E11.621 Type 2 diabetes mellitus with foot ulcer (principal); L97.509 Non-pressure chronic ulcer of other part of unspecified foot with unspecified severity | CPT/HCPCS: 87070; 87075; 87077; 87147; 87186; 87205 ==

== ENCOUNTER → 2025-03-15 09:16 | Outpatient (CLI) | payer MEDICARE, MEDICAID, SELFPAY | LOC: WC 09:44 | PROVIDERS: Family Provider Family Medicine; PCP Family Medicine; Referring Provider Family Medicine; Visit Provider Surgery | DX: E11.621 Type 2 diabetes mellitus with foot ulcer (principal); L97.412 Non-pressure chronic ulcer of right heel and midfoot with fat layer exposed; M14.671 Charcot's joint, right ankle and foot; M86.171 Other acute osteomyelitis, right ankle and foot; G62.9 Polyneuropathy, unspecified; I73.9 Peripheral vascular disease, unspecified; I10 Essential (primary) hypertension; E78.5 Hyperlipidemia, unspecified; Z89.432 Acquired absence of left foot; F17.210 Nicotine dependence, cigarettes, uncomplicated; F19.10 Other psychoactive substance abuse, uncomplicated; F20.9 Schizophrenia, unspecified | CPT/HCPCS: 11042; 87070; 87075; 87077; 87147; 87186; 87205; 99203; 99215 ==